=== PATIENT | female | born 1985 | race Two or more races ===

== ENCOUNTER 2023-08-16 18:23 | Emergency (ER) | payer OTHER ==
[2023-08-16 18:38] VITALS: BP 142/84; PULSE 79; RESP 18; TEMP 97.7; BMI 35.4
[2023-08-16 20:39] LABS: BASO % 0.8 % (0-2.0); EOS % 1.7 % (0-4.5); HEMATOCRIT 42.3 % (32.4-45.2); HEMOGLOBIN 14.3 GM/dL (10.7-15.3); LYMPH % 30.4 % (8-40); MCH 28.7 pg (25.7-33.7); MCHC 33.8 g/dl (32.0-36.0); MEAN CELL VOLUME 84.9 fl (80-96); MONO % 7.8 % (3.8-10.2); NEUT % 59.3 % (42.8-82.8); PLATELET COUNT 234 10^3/uL (134-434); RBC 4.98 M/mm3 (3.60-5.2); RDW 13.9 % (11.6-15.6); WHITE BLOOD COUNT 7.4 K/mm3 (4.0-10.0)
[2023-08-16 20:50] LABS: POTASSIUM 3.9 mmol/L (3.5-5.1)
[2023-08-16 20:52] LABS: CALCIUM 9.6 mg/dL (8.5-10.1)
[2023-08-16 20:56] LABS: CREATININE 1.3 mg/dL (0.55-1.3)
[2023-08-16 20:57] LABS: BILIRUBIN,TOTAL 0.1 mg/dL (0.2-1)
[2023-08-16 20:58] LABS: TOT PROT 7.6 g/dl (6.4-8.2)
== END 2023-08-16 23:21 | disposition left against medical advice (07) ==
LOC: JER 18:23
DX: J32.9 Chronic sinusitis, unspecified (principal); R42 Dizziness and giddiness; N91.2 Amenorrhea, unspecified; R07.89 Other chest pain; R51.9 Headache, unspecified; R09.81 Nasal congestion; Z20.822 Contact with and (suspected) exposure to COVID-19
CPT/HCPCS: 0241U-QW; 36415; 71046-TC-FY; 80053; 84484; 84703; 85025; 85379; 86140; 93005; 93010; 99285-25